=== PATIENT | male | born 1985 | race Caucasian/White ===

== ENCOUNTER 2020-06-09 02:09 | Emergency (ER) | payer OTHER ==
[2020-06-09 02:46] LABS: HEMOGLOBIN 13.2 gm/dl (14.0-17.5); RED BLOOD COUNT 4.66 M/UL (4.20-5.50); WHITE BLOOD COUNT 8.9 K/UL (4.5-11.0)
[2020-06-09 02:58] LABS: BUN/CREATININE RATIO 12 (0-10)
[2020-06-09] MEDS ORDERED: ZOFRAN ODT 4 MG4 MG SL (04:33)
[2020-06-09] MEDS ORDERED: TORADOL 10 MG T10 MG PO (04:33)
[2020-06-09] MEDS ORDERED: FLOMAX 0.4 MG0.4 MG PO (04:33)
== END 2020-06-09 05:22 | disposition home or self-care (01) ==
LOC: ER1 02:09
PROVIDERS: Emergency Medicine
DX: R10.11 Right upper quadrant pain (principal); R31.9 Hematuria, unspecified; R11.2 Nausea with vomiting, unspecified; R19.7 Diarrhea, unspecified; R63.0 Anorexia; F17.200 Nicotine dependence, unspecified, uncomplicated; Z86.19 Personal history of other infectious and parasitic diseases; Z20.822 Contact with and (suspected) exposure to COVID-19
CPT/HCPCS: 80053; 81001; 83690; 85025; 96374; 96375; 99284; J1885; J2405; Q9967; U0002

== ENCOUNTER 2020-06-26 10:35 | Emergency (ER) | payer OTHER ==
[~2020-06-26 10:35] MED LIST: FLOMAX 0.4 MG0.4 MG PO; TORADOL 10 MG T10 MG PO; ZOFRAN ODT 4 MG4 MG SL
[2020-06-26 11:51] LABS: HEMOGLOBIN 14.6 gm/dl (14.0-17.5); RED BLOOD COUNT 5.28 M/UL (4.20-5.50); WHITE BLOOD COUNT 8.1 K/UL (4.5-11.0)
[2020-06-26 12:09] LABS: BUN/CREATININE RATIO 8 (0-10)
[2020-06-26] MEDS ORDERED: ZOFRAN4 MG PO (13:24)
[2020-06-26] MEDS ORDERED: BENTYL 20MG TAB20 MG PO (13:24)
[2020-06-27] MEDS ORDERED: TYLENOL 500 MG500 MG PO (11:42)
[2020-06-27] MEDS ORDERED: OXCARBAZEPINE150 MG PO (11:42)
[2020-06-27] MEDS ORDERED: WELLBUTRIN XL150 MG PO (11:43)
[2020-06-27] MEDS ORDERED: DEPAKOTE ER500 MG PO (11:43)
== END 2020-06-26 13:44 | disposition home or self-care (01) ==
LOC: ER1 10:35
PROVIDERS: Physician Assistant
DX: K80.70 Calculus of gallbladder and bile duct without cholecystitis without obstruction (principal); F17.200 Nicotine dependence, unspecified, uncomplicated
CPT/HCPCS: 76705; 80053; 85025; 96374; 99284; J1885

== ENCOUNTER 2020-06-27 08:40 | Observation (INO) | payer OTHER ==
[~2020-06-27] VITALS: Ht 170.2 cm; Wt 79.4 kg
[~2020-06-27 08:40] MED LIST changes: +BENTYL 20MG TAB20 MG PO; +ZOFRAN4 MG PO
[2020-06-27 09:32] LABS: HEMOGLOBIN 14.8 gm/dl (14.0-17.5); RED BLOOD COUNT 5.22 M/UL (4.20-5.50); WHITE BLOOD COUNT 6.3 K/UL (4.5-11.0)
[2020-06-27 10:19] LABS: BUN/CREATININE RATIO 10 (0-10)
[2020-06-27] MEDS ORDERED: OXCARBAZEPINE150 MG PO (11:42)
[2020-06-27] MEDS ORDERED: TYLENOL 500 MG500 MG PO (11:42)
[2020-06-27] MEDS ORDERED: WELLBUTRIN XL150 MG PO (11:43)
[2020-06-27] MEDS ORDERED: DEPAKOTE ER500 MG PO (11:43)
[2020-06-28] MEDS ORDERED: TORADOL 10 MG T10 MG PO (12:16)
== END 2020-06-28 13:57 | disposition home or self-care (01) ==
LOC: ER1 08:40 → CDU 11:13 → MED SURG 4 19:43
PROVIDERS: Physician Assistant; ADMIT Surgery
DX: K80.10 Calculus of gallbladder with chronic cholecystitis without obstruction (principal); F17.200 Nicotine dependence, unspecified, uncomplicated; Z20.822 Contact with and (suspected) exposure to COVID-19; Z79.899 Other long term (current) drug therapy
CPT/HCPCS: 80053; 81001; 82150; 83690; 85025; 87635; 96374; 96375; 99284; G0378; J0690; J1100; J1170; J1885; J2001; J2250; J2405; J2704; J2710; J3010; J7030; J7120